=== PATIENT | female | born 1965 | race Caucasian/White ===

== ENCOUNTER 2017-07-01 15:45 | Emergency (ER) | payer MEDICARE ==
[~2017-07-01] VITALS: Ht 162.6 cm; Wt 113.4 kg
[~2017-07-01 15:45] MED LIST: ACEBUTCAFT PO; ALPR.5 PO; AMIT25 PO; Ativan1 MG SL; CARI350 PO; CONEST.625; DULO30 PO; ESTR2 PO; FENT50TP TOP; HORMONE; HYDACE5 PO; HYDACE5325 PO; HYDMOR2 PO; METO25 PO; METO5A PO; MUSCLE RELAXER; NAPR550 PO; Norco 5-325 Ta1 EACH PO; ONDA4ODT MM; PROM25S PR; RANI150 PO; SUMA6I SC; TRAM50 PO; VENL37.5; [UNRECOGNIZED DRUG - REMARK]
[2017-07-01] MEDS ORDERED: DEXTROAMPHETAMI PO (16:12)
[2017-07-01] MEDS ORDERED: ESTR2 PO (16:13)
[2017-07-01] MEDS ORDERED: FURO20 PO (16:13)
[2017-07-01] MEDS ORDERED: FLUO10 PO (16:14)
[2017-07-01] MEDS ORDERED: ZESTORETIC 20-121 EA (16:19)
[2017-07-01 17:22] LABS: BASOPHILS ABSOLUTE AUTO 0.05 K/mm3 (0.00-0.23); BASOPHILS PERCENT AUTO 1 % (0-2); EOSINOPHILS ABSOLUTE AUTO 0.21 K/mm3 (0.00-0.68); EOSINOPHILS PERCENT AUTO 3 % (0-6); Hemoglobin 11.5 g/dL (11.5-16.0); IMMATURE GRAN ABSOLUTE AUTO 0.07 K/mm3 (0.00-0.10); IMMATURE GRAN PERCENT AUTO 1 % (0-1); LYMPHOCYTES PERCENT AUTO 27 % (21-46); MONOCYTES ABSOLUTE AUTO 0.58 K/mm3 (0.16-1.47); MONOCYTES PERCENT AUTO 8 % (4-13); Mean Corpuscular HGB 28.5 pg (26.0-34.0); Mean Corpuscular HGB Conc 32.9 g/dL (31.5-36.5); Mean Corpuscular Volume 87 fL (80-100); NEUTROPHILS ABSOLUTE AUTO 4.16 K/mm3 (1.96-9.15); NEUTROPHILS PERCENT AUTO 60 % (41-73); Platelet Count 259 K/mm3 (150-400); RDW Coefficient Variation 13.8 % (11.7-14.2); RDW Standard Deviation 43.1 fL (35.1-46.3); Red Blood Cell Count 4.04 M/mm3 (3.80-5.20); White Blood Cell Count 6.97 K/mm3 (4.00-11.30)
[2017-07-01 17:43] LABS: Alanine Aminotransfer (ALT/SGP 23 U/L (12-78); Albumin, Blood 3.3 g/dL (3.4-5.0); Albumin/Globulin Ratio 0.8 (0.8-1.8); Alk Phos 111 U/L (50-136); Anion Gap 8 mmol/L (6-16); Aspartate Aminotrans (AST/SGOT 26 U/L (12-37); Bilirubin, Total 0.4 mg/dL (0.1-1.0); Blood Urea Nitrogen 14 mg/dL (8-24); Bun/Creatinine Ratio 16.9 (12.0-20.0); CO2, Blood 25 mmol/L (21-32); Calcium, Blood 8.4 mg/dL (8.5-10.1); Chloride, Blood 106 mmol/L (98-108); Creatinine, Blood 0.83 mg/dL (0.40-1.00); Ethanol (Alcohol), Blood, Med <3 mg/dL; Globulin, Blood 4.1 g/dL (2.2-4.0); Glomerular Filtration Rate >60 (60-); Glucose, Blood 90 mg/dL (70-99); Potassium, Blood 3.8 mmol/L (3.5-5.5); Salicylate <1.7 mg/dL (2.8-20.0); Sodium, Blood 139 mmol/L (136-145); Total Protein, Blood 7.4 g/dL (6.4-8.2)
[2017-07-01 17:48] LABS: Acetaminophen, Random <2.0 ug/mL (10.0-30.0)
[2017-07-01 18:31] LABS: Source, Urine Voided
[2017-07-01 18:44] LABS: Appearance, Urine Clear (Clear); Bilirubin, Urine Neg (Neg); Blood, Urine Neg (Neg); Color, Urine Yellow (P-Yellow); Glucose Qualitative, Urine Neg (Neg); Ketones, Urine Neg (Neg); Leukocyte Esterase, Urine 1+ (Neg); Nitrite, Urine Neg (Neg); Protein, Urine Neg (Neg); Urobilinogen, Urine NORM (Normal)
[2017-07-01 19:03] LABS: U Amphetamine Screen Not Detected; U Barbituate Screen Not Detected; U Benzodiazapine Screen Not Detected; U Buprenorphine Screen Not Detected; U Cannabinoids Screen Not Detected; U Cocaine Screen Not Detected; U Methadone Screen Not Detected; U Methamphetamine Screen Not Detected; U Opiates Screen DETECTED; U Oxycodone Screen Not Detected; U Phencyclidine Screen Not Detected; U Propoxyphene Screen Not Detected
[2017-07-01 19:12] LABS: Bacteria Rare /hpf; Red Blood Cells, Urine 0-2 /hpf (0-2); Squamous Epithelial Cells Rare /hpf (Few); White Blood Cells, Urine 0-2 /hpf (0-5)
== END 2017-07-01 22:01 | disposition home or self-care (01) ==
LOC: ER 15:45
PROVIDERS: Emergency Medicine
DX: T46.4X1A Poisoning by angiotensin-converting-enzyme inhibitors, accidental (unintentional), initial encounter (principal); T50.2X1A Poisoning by carbonic-anhydrase inhibitors, benzothiadiazides and other diuretics, accidental (unintentional), initial encounter; R11.10 Vomiting, unspecified; F32.9 Major depressive disorder, single episode, unspecified; G43.909 Migraine, unspecified, not intractable, without status migrainosus; Z88.8 Allergy status to other drugs, medicaments and biological substances; Z79.899 Other long term (current) drug therapy; Z90.710 Acquired absence of both cervix and uterus
CPT/HCPCS: 80053; 81001; 81025; 84443; 85025; 87086; 93005; 93010; 96360; 99284; G0480; J7030

== ENCOUNTER → 2018-11-22 | Outpatient (CLI) | payer MEDICARE ==
[~2018-11-22] MED LIST changes: +ACYC200 PO; +CLARITIN10 MG; +DEXTROAMPHETAMI PO; +DOC250; +Desyrel150 MG PO; +FISH OIL + D31 EACH; +FLUO10 PO; +FURO20 PO; +HYDMOR4 PO; +MELATONIN10 M2 PO; +MORPHINE SULFATE PO; +POTA10T; +PRAV20 PO; +TRIA15CR3 TOP; +ZESTORETIC 20-1 EAC1 PO
[2018-11-24 13:50] LABS: U Amphetamine Screen DETECTED; U Barbituate Screen Not Detected; U Benzodiazapine Screen Not Detected; U Buprenorphine Screen Not Detected; U Cannabinoids Screen Not Detected; U Cocaine Screen Not Detected; U Methadone Screen Not Detected; U Methamphetamine Screen Not Detected; U Opiates Screen DETECTED; U Oxycodone Screen Not Detected; U Phencyclidine Screen Not Detected; U Propoxyphene Screen Not Detected
== END ==
LOC: LAB SHORT 16:38 → LAB 16:38
PROVIDERS: Psychiatry & Neurology Psychiatry
DX: F90.0 Attention-deficit hyperactivity disorder, predominantly inattentive type (principal)
CPT/HCPCS: G0480

== ENCOUNTER 2019-01-18 08:47 | Day surgery (SDC) | payer MEDICARE ==
[~2019-01-18] VITALS: Ht 162.6 cm; Wt 134.8 kg
[~2019-01-18 08:47] MED LIST changes: -CLARITIN10 MG; -DOC250; -FISH OIL + D31 EACH; -POTA10T
[2019-01-18] MEDS ORDERED: DOC250 (09:59)
[2019-01-18] MEDS ORDERED: CLARITIN10 MG (09:59)
[2019-01-18] MEDS ORDERED: FISH OIL + D31 EACH (09:59)
[2019-01-18] MEDS ORDERED: POTA10T (09:59)
--- NOTE | 2019-01-18 10:30 | NUR ---
01/18/19 1030 Ariadna Chi PATIENT AND SPOUSE NOTIFIED THE PRIOR CASE IS RUNNING A LITTLE LONG AND SHE WILL BE DELAYED A LITTLE BIT. PATIENT IS COMFORTABLE, SPOUSE AT BEDSIDE AND CALL LIGHT ATTACHED TO BLANKET
--- NOTE | 2019-01-18 11:30 | NUR ---
01/18/19 1130 Shelby Caal RIGHT ARM PREPPED BY ORSC.INOCENCIO, LEFT ARM PREPPED BY ORSC.MICHEALG
--- NOTE | 2019-01-18 12:54 | NUR ---
01/18/19 1254 America Cheatham REPORT TO CHARLIE TO TAKE OVER CARE OF PT
== END 2019-01-18 13:30 | disposition home or self-care (01) ==
LOC: ORSCSDS 08:47
PROVIDERS: Orthopaedic Surgery
PROC: 01N50ZZ Release Median Nerve, Open Approach (ICD-10-PCS; principal; 2019-01-18 10:30)
DX: G56.03 Carpal tunnel syndrome, bilateral upper limbs (principal); E66.01 Morbid (severe) obesity due to excess calories; Z68.43 Body mass index [BMI] 50.0-59.9, adult; Z79.899 Other long term (current) drug therapy
CPT/HCPCS: A9270-GY; J0330; J0690; J1100; J2250; J2370; J2405; J2704; J3010; J7120

== ENCOUNTER → 2019-06-07 | Outpatient (CLI) | payer MEDICARE ==
[~2019-06-07] MED LIST changes: +CLARITIN10 MG; +DOC250; +FISH OIL + D31 EACH; +POTA10T
== END ==
LOC: LAB SHORT 08:29 → PLD 08:29
DX: L72.3 Sebaceous cyst (principal)
CPT/HCPCS: 88304

== ENCOUNTER → 2019-10-24 | Outpatient (CLI) | payer MEDICARE | END | disposition home or self-care (01) | LOC: LAB SHORT 18:07 → LAB 18:07 | DX: B35.4 Tinea corporis (principal) | CPT/HCPCS: 87070; 87205 ==

== ENCOUNTER 2021-10-04 23:22 | Inpatient (IN) | payer MEDICARE ==
[~2021-10-04] VITALS: Ht 162.6 cm; Wt 98.4 kg
[2021-10-05 00:09] LABS: BASOPHILS ABSOLUTE AUTO 0.08 K/mm3 (0.00-0.23); BASOPHILS PERCENT AUTO 1 % (0-2); EOSINOPHILS ABSOLUTE AUTO 0.01 K/mm3 (0.00-0.68); EOSINOPHILS PERCENT AUTO 0 % (0-6); Hematocrit 43.8 % (33.0-51.0); Hemoglobin 14.8 g/dL (11.5-16.0); IMMATURE GRAN ABSOLUTE AUTO 0.08 K/mm3 (0.00-0.10); IMMATURE GRAN PERCENT AUTO 1 % (0-1); LYMPHOCYTES ABSOLUTE AUTO 2.35 K/mm3 (0.84-5.20); LYMPHOCYTES PERCENT AUTO 17 % (21-46); MONOCYTES ABSOLUTE AUTO 0.98 K/mm3 (0.16-1.47); MONOCYTES PERCENT AUTO 7 % (4-13); Mean Corpuscular HGB Conc 33.8 g/dL (31.5-36.5); Mean Corpuscular Volume 86 fL (80-100); Mean Platelet Volume 9.6 fL (9.1-12.4); NEUTROPHILS ABSOLUTE AUTO 10.34 K/mm3 (1.96-9.15); NEUTROPHILS PERCENT AUTO 75 % (41-73); Platelet Count 302 K/mm3 (150-400); RDW Coefficient Variation 12.5 % (11.7-14.2); RDW Standard Deviation 38.8 fL (35.1-46.3); White Blood Cell Count 13.84 K/mm3 (4.00-11.30)
[2021-10-05] MEDS ORDERED: ESTRADIOL1 M1 (00:14)
[2021-10-05] MEDS ORDERED: ALPRAZOLAM PO (00:14)
[2021-10-05] MEDS ORDERED: ONDA4 PO (00:15)
[2021-10-05] MEDS ORDERED: ZOLPIDEM TARTRA10 MG PO (00:15)
[2021-10-05 00:26] LABS: Albumin, Blood 4.6 g/dL (3.4-5.0); Albumin/Globulin Ratio 1.2 (0.8-1.8); Bilirubin, Total 1.7 mg/dL (0.1-1.0); Bun/Creatinine Ratio 10.1 (12.0-20.0); Calcium, Blood 10.4 mg/dL (8.5-10.1); Creatinine, Blood 1.09 mg/dL (0.40-1.00); Globulin, Blood 3.7 g/dL (2.2-4.0); Potassium, Blood 2.7 mmol/L (3.5-5.5); Total Protein, Blood 8.3 g/dL (6.4-8.2)
[2021-10-05 03:52] LABS: Anti-Xa UFH, PHA Monitoring <0.10 IU/mL; International Normalized Ratio 1.11; Prothrombin Time Results 11.6 Sec (9.7-11.5)
--- NOTE | 2021-10-05 06:37 | NUR ---
CARE ASSUMPTION: RECEIVED REPORT FROM SELAM ED RN. PATIENT ARRIVED BY GURNEY AND AMBULATED TO TOILET. PATIENT REPORTED 6/10 CHEST PAIN, NO SOB. PATIENT DRY HEAVING. HEPARIN AND KCL Y-SITED TO [facility] IV SITE - VERIFIED WITH PHARMACY THIS WAS ACCEPTABLE. ADMISSION HX AND ASSESSMENT COMPLETE. MEDS RECONCILED. BED LOW WITH CALL LIGHT IN REACH. WILL REPORT TO ONCOMING RN.
[2021-10-05 09:06] LABS: BASOPHILS ABSOLUTE AUTO 0.05 K/mm3 (0.00-0.23); BASOPHILS PERCENT AUTO 0 % (0-2); EOSINOPHILS PERCENT AUTO 0 % (0-6); Hematocrit 42.7 % (33.0-51.0); Hemoglobin 13.8 g/dL (11.5-16.0); IMMATURE GRAN PERCENT AUTO 1 % (0-1); LYMPHOCYTES ABSOLUTE AUTO 1.67 K/mm3 (0.84-5.20); LYMPHOCYTES PERCENT AUTO 12 % (21-46); MONOCYTES ABSOLUTE AUTO 0.66 K/mm3 (0.16-1.47); MONOCYTES PERCENT AUTO 5 % (4-13); Mean Corpuscular HGB 28.6 pg (26.0-34.0); Mean Corpuscular HGB Conc 32.3 g/dL (31.5-36.5); Mean Corpuscular Volume 88 fL (80-100); Mean Platelet Volume 9.9 fL (9.1-12.4); NEUTROPHILS ABSOLUTE AUTO 11.17 K/mm3 (1.96-9.15); NEUTROPHILS PERCENT AUTO 82 % (41-73); Platelet Count 231 K/mm3 (150-400); RDW Standard Deviation 41.9 fL (35.1-46.3); Red Blood Cell Count 4.83 M/mm3 (3.80-5.20); White Blood Cell Count 13.65 K/mm3 (4.00-11.30)
[2021-10-05 09:14] LABS: Albumin, Blood 4.1 g/dL (3.4-5.0); Anion Gap 11 mmol/L (6-16); Blood Urea Nitrogen 14 mg/dL (8-24); Bun/Creatinine Ratio 13.3 (12.0-20.0); CO2, Blood 23 mmol/L (21-32); Calcium, Blood 9.3 mg/dL (8.5-10.1); Chloride, Blood 107 mmol/L (98-108); Creatinine, Blood 1.05 mg/dL (0.40-1.00); Glomerular Filtration Rate 62 (60-); Glucose, Blood 104 mg/dL (70-99); Potassium, Blood 3.4 mmol/L (3.5-5.5); Sodium, Blood 141 mmol/L (136-145)
--- NOTE | 2021-10-05 10:23 | NUR ---
AM NOTE: PATIENT ALERT AND ORIENTED X4. DENIES NUMBNESS/TINGLING. PERRLA. ABLE TO STAND AND MOVE SELF AROUND IN BED. USING BSC. ON ROOM AIR SATING ABOVE 95%. LUNGS SOUNDING CLEAR AND DIM. ON TELE SHOWING SINUS RHYTHM WITH OCCASIONAL PAC, ELEVATED BP. COMPLAINS OF 6/[address] THIS AM. [address] WALLACE AWARE AND IN THIS AM TO SEE PATIENT. EKG COMPLETED AND IN CHART. TROP REDRAWN. PLAN FOR ECHO, DDIMER LAB, AND CT SCAN OF ABDOMEN/PELVIS. PATIENT REFUSING NITRO SHE ALREADY HAS MIGRAINE AND PREVIOUS NITRO IN ER MADE MIGRAINE WORSE. FENTANYL GIVEN THIS AM WITH NO RELIEF. DR. ROMAN CALLED, NEW ORDER FOR MORPHINE X1, GIVEN WITH LITTLE RELIEF WELL. PRN XANAX GIVEN PATIENT IS ANXIOUS. CHRONIC PAIN WITH PAIN PUMP TO RLQ. DENIES ABDOMINAL PAIN, COMPLAINS OF NAUSEA THIS AM, MEDICATED WITH ZOFRAN. NPO AT THIS TIME. PATIENT LAYING DOWN AT THIS TIME AND SEEMS TO BE MORE COMFORTABLE COMPARED TO THE START OF SHIFT. HEPARIN INFUSING AT 15 UNITS/KG/HOUR. DENIES NEEDS AT THIS TIME WILL CONTINUE TO MONITOR.
--- NOTE | 2021-10-05 18:57 | NUR ---
SHIFT SUMMARY: NO ACUTE CHANGES. PATIENT CONTINUES TO COMPLAIN OF PAIN AND NOT ABLE TO GET COMFORTABLE. HEPARIN GTT CONTINUES TO INFUSE. CALL PLACED TO DR. ROMAN TO DISCUSS PAIN. NEW ORDERS FOR 1MG IV DILAUDID X1. SEEMED TO HELP PATIENT, SLEEPING NOW AT THIS TIME. BP ELEVATED ON 1600 CHECK, HYDRALIZINE GIVEN WITH GOOD RELIEF. NO OTHER ACUTE CHANGES. WILL CONTINUE TO MONITOR AND REPORT OFF TO ONCOMING RN.
[2021-10-06 04:28] LABS: BASOPHILS ABSOLUTE AUTO 0.06 K/mm3 (0.00-0.23); BASOPHILS PERCENT AUTO 0 % (0-2); EOSINOPHILS ABSOLUTE AUTO 0.01 K/mm3 (0.00-0.68); EOSINOPHILS PERCENT AUTO 0 % (0-6); Hematocrit 37.4 % (33.0-51.0); Hemoglobin 12.5 g/dL (11.5-16.0); IMMATURE GRAN ABSOLUTE AUTO 0.11 K/mm3 (0.00-0.10); IMMATURE GRAN PERCENT AUTO 1 % (0-1); LYMPHOCYTES ABSOLUTE AUTO 2.44 K/mm3 (0.84-5.20); LYMPHOCYTES PERCENT AUTO 16 % (21-46); MONOCYTES ABSOLUTE AUTO 0.82 K/mm3 (0.16-1.47); MONOCYTES PERCENT AUTO 6 % (4-13); Mean Corpuscular HGB Conc 33.4 g/dL (31.5-36.5); Mean Corpuscular Volume 87 fL (80-100); Mean Platelet Volume 9.9 fL (9.1-12.4); NEUTROPHILS ABSOLUTE AUTO 11.52 K/mm3 (1.96-9.15); NEUTROPHILS PERCENT AUTO 77 % (41-73); Platelet Count 219 K/mm3 (150-400); RDW Coefficient Variation 13.3 % (11.7-14.2); RDW Standard Deviation 41.7 fL (35.1-46.3); Red Blood Cell Count 4.31 M/mm3 (3.80-5.20); White Blood Cell Count 14.96 K/mm3 (4.00-11.30)
[2021-10-06 04:56] LABS: Albumin, Blood 3.8 g/dL (3.4-5.0); Anion Gap 8 mmol/L (6-16); Blood Urea Nitrogen 13 mg/dL (8-24); Bun/Creatinine Ratio 14.3 (12.0-20.0); CO2, Blood 24 mmol/L (21-32); Calcium, Blood 8.9 mg/dL (8.5-10.1); Chloride, Blood 107 mmol/L (98-108); Creatinine, Blood 0.91 mg/dL (0.40-1.00); Glomerular Filtration Rate 74 (60-); Glucose, Blood 104 mg/dL (70-99); Phosphorus, Blood 2.6 mg/dL (2.5-4.9); Sodium, Blood 139 mmol/L (136-145)
--- NOTE | 2021-10-06 06:54 | NUR ---
SHIFT SUMMARY PT ALERT AND ORIENTED X 4. IND TO COMMODE. HEPARIN GTT, SEE EMAR. PT REPORTS SEVERE CP T/O SHIFT. MEDICATED PER EMAR. PHYSICIAN NOTIFIED AT BEGINNING OF SHIFT, ORDERS FOR DOSE INCREASE ON FENTANYL TO 75 MCG-100MC Q 4. PT CONT TO REPORT SEVERE PAIN. RESIDENT INFORMED, ORDERS FOR 1 MG DILAUDID ONE TIME. PT CONT TO REPORT PAIN, MEDICATED PER EMAR AND OFFERED ICE/HEAT. VSS. HR STABLE. BP STABLE. OXYGEN SATURATION MAINTAINED ABOVE 95% ON RA. PT NPO SINCE MIDNIGHT FOR STRESS TEST THIS AM. CALL LIGHT WITHIN REACH. WILL CONT TO MONITOR UNTIL REPORT GIVEN TO DAYSHIFT RN.
[2021-10-06 12:28] LABS: Hematocrit 36.5 % (33.0-51.0); Hemoglobin 12.3 g/dL (11.5-16.0)
--- NOTE | 2021-10-06 17:17 | NUR ---
SHIFT SUMMARY PT HAS BEEN INDEPENDENT IN ROOM. PT HAS C/O 10/10 PAIN TO THE "BASE OF SKULL DOWN NECK" AND THE "TOP OF HEART" THAT IS WORSE ON ISPIRATION. PAIN HAS BEEN UNRELIEVED WITH MEDICATION OR OTHER INTERVENTIONS. PT HAS ALSO C/O EXTREME ANXIETY THAT WAS UNRELIEVED WITH MEDICATION. PT TOOK A SHOWER AND AMBULATED IN HALLWAYS INDEPENDENTLY. SBP WAS A CONSISTENT 170. HEART RATE RANGED 50-60, THERE WAS A PERIOD OF VENTRICULAR BIGEMINY THAT SPONTANEOUSLY CONVERTED BACK TO SINUS RHYTHM. NO ACUTE CHANGES IN CONDITION.
[2021-10-06 18:16] LABS: Hematocrit 36.4 % (33.0-51.0); Hemoglobin 12.4 g/dL (11.5-16.0)
--- NOTE | 2021-10-06 21:32 | NUR ---
PT VERY ANXIOUS IN ROOM. ROCKING BACK AND FORTH. ASKED THIS NURSE TO GET MORE PAIN MEDS OR ANXIETY MEDICATION SO THAT SHE CAN SLEEP. THIS RN ASKED WHAT MEDICATION WORKED BEST FOR HER AND MORE INFO ABOUT PAIN PUMP. SHE STATED PAIN PUMP MIGHT NO LONGER BE WORKING AND THAT SHE TAKES DILAUDID IN BETWEEN PUMP BOLUSES DUE TO SEVERE PAIN. SHE STATES THAT THE FENTYNAL GIVEN TO HER IS CAUSING HER HEADACHES. SHE PROCEEDED TO ASK FOR ADDITIONAL DOSES OF XANAX BECAUSE SHE TAKES XANAX TWICE A DAY VS ONCE ORDERED. THIS NURSE CALLED DR MEJIA AND NOTIFIED HER OF PT'S REQUESTS. DOCTOR TO PUT IN FURTHER ORDERS. WHEN THIS NURSE WENT IN TO MEDICATE PER ORDER ENTERED BY DR MEJIA PT OVERHEARD PT ACCROSS THE DON NOT WANTING "SEDATIVES" AND ASKED IF SHE COULD HAVE THE "SEDATIVES," THEY REFUSED.
--- NOTE | 2021-10-06 23:00 | NUR ---
PT CALLED THIS NURSE REGARDING A BUMP THAT SHE HAS ON HER RIGHT BUTTOCK FROM A FEW DAYS AGO. SHE REPORTS THAT IT IS VERY PAINFUL AND THIS NURSE WAS ABLE TO OBTAIN A PICTURE FOR CHART. PT ALSO REQUESTED THIS NURSE TO CONTACT AND ASK FOR ADDITIONAL ANXIETY MEDICATION BECAUSE ORDERED MEDICATION GIVEN PREVIOUSLY PER EMAR DID NOT WORK. PT APPEARS TO BE CALMER THAN BEFORE SHE WAS MEDICATED BUT REPORTS NO IMPROVEMENT. SHE IS REQUESTING HER "HOME ORDER" OF XANAX 1MG WITH NO LIMIT WHICH SHE TAKES PRN ACCORDING TO "STRESSORS." HR IS NSR SUSTAINING IN THE 60'S. SHE ALSO REQUESTED INFO ON CHANGES TO PAIN MEDICATION. PT INFORMED THIS NURSE THAT THE MORPHINE PUMP GIVES HER 7MG PER DAY BUT SHE IS ABLE TO HAVE 1.5MG ADDITIONAL BOLUS TID PRN, PER PAIN MANAGEMENT DOCTOR'S ORDER IN [place], BUT INFORMED THIS NURSE THAT THE PUMP POSSIBLY BECAME DISLODGED AND SHE MIGHT NOT BE GETTING AN ADEQUATE DOSE. SHE ALSO STS THAT SHE HAD A RX FOR DILAUDID PO FOR BREAKTHROUGH HEADACHES BUT RETRACTED THAT IT WAS AN ACTIVE ORDER. VERBALLY TALKED TO DR MEJIA AND DID NOT OBTAIN FURTHER ORDERS.
--- NOTE | 2021-10-07 00:44 | NUR ---
WHEN GIVING PT PAIN MEDICATION FOR SHOULDER AND HEADACHE 01/12 PT ASKED THIS NURSE IF THERE IS ANY WAY THE DOSE "COULD BE DOUBLED." PT ADVISED THAT WE DO NOT DO THAT AND EDUCATED ON PAIN MANAGEMENT AND POLICIES.
[2021-10-07 00:55] LABS: Hematocrit 37.7 % (33.0-51.0); Hemoglobin 12.7 g/dL (11.5-16.0)
[2021-10-07 01:15] LABS: CHOL/HDL RATIO 3.2; Cholesterol 151 mg/dL (50-200); HDL Cholesterol 47 mg/dL (>39); LDL/HDL RATIO 1.8; Low Density Lipoprotein Chol 83 mg/dL (0-110); Triglycerides 107 mg/dL (30-160); Very Low Density Lipoprot Chol 21 mg/dL (6-32)
[2021-10-07 06:17] LABS: BASOPHILS ABSOLUTE AUTO 0.08 K/mm3 (0.00-0.23); BASOPHILS PERCENT AUTO 1 % (0-2); EOSINOPHILS ABSOLUTE AUTO 0.01 K/mm3 (0.00-0.68); EOSINOPHILS PERCENT AUTO 0 % (0-6); Hematocrit 36.7 % (33.0-51.0); Hemoglobin 12.4 g/dL (11.5-16.0); IMMATURE GRAN ABSOLUTE AUTO 0.15 K/mm3 (0.00-0.10); IMMATURE GRAN PERCENT AUTO 1 % (0-1); LYMPHOCYTES ABSOLUTE AUTO 2.51 K/mm3 (0.84-5.20); LYMPHOCYTES PERCENT AUTO 15 % (21-46); MONOCYTES PERCENT AUTO 5 % (4-13); Mean Corpuscular HGB 28.7 pg (26.0-34.0); Mean Corpuscular HGB Conc 33.8 g/dL (31.5-36.5); Mean Corpuscular Volume 85 fL (80-100); Mean Platelet Volume 9.6 fL (9.1-12.4); NEUTROPHILS ABSOLUTE AUTO 13.27 K/mm3 (1.96-9.15); NEUTROPHILS PERCENT AUTO 78 % (41-73); Platelet Count 227 K/mm3 (150-400); RDW Coefficient Variation 13.1 % (11.7-14.2); RDW Standard Deviation 40.1 fL (35.1-46.3); Red Blood Cell Count 4.32 M/mm3 (3.80-5.20); White Blood Cell Count 16.92 K/mm3 (4.00-11.30)
[2021-10-07 06:32] LABS: Albumin, Blood 4.1 g/dL (3.4-5.0); Anion Gap 10 mmol/L (6-16); Blood Urea Nitrogen 10 mg/dL (8-24); Bun/Creatinine Ratio 11.9 (12.0-20.0); CO2, Blood 24 mmol/L (21-32); Calcium, Blood 9.2 mg/dL (8.5-10.1); Chloride, Blood 105 mmol/L (98-108); Creatinine, Blood 0.84 mg/dL (0.40-1.00); Glomerular Filtration Rate 82 (60-); Glucose, Blood 116 mg/dL (70-99); Phosphorus, Blood 2.5 mg/dL (2.5-4.9); Sodium, Blood 139 mmol/L (136-145)
--- NOTE | 2021-10-07 07:32 | NUR ---
SHIFT SUMMARY PT A/O. BP WAS ELEVATED DUE TO PT MOVING AND ROCKING WHEN BP WAS TAKEN, WHEN ADVISED TO HOLD STILL SHE DID NOT. SHE REMAINED ON RA WITH SATS ABOVE 92%. PT HAS CALLED SEVERAL TIMES T/O THE NIGHT FOR INCREASE AND DECREASE OF ROOM TEMP, TAKING TELE MONITOR ON AND OFF, PAIN MED REQUEST, ANXIETY MED REQUEST. PT HAS AMBULATED DOWN THE DON THREE TIMES BUT CALLS FOR HELP TO AMBULATE TO BATHROOM. WITH PAIN MEDICATION PT ASKED THIS NURSE IF SHE COULD GET DOUBLE THE DOSE. IN ANOTHER OCCASSION SHE ASKED THIS NURSE THAT IF SHE COULD GET HER PAIN MEDICATION EARLIER BECAUSE ANOTHER NURSE HAS DONE THAT PREVIOUSLY FOR HER. PT ALSO WANTED MORE ANXIETY MEDS THAN ORDERED. AFTER OBTAINING AN ORDER OF HYDROXAZINE THIS NURSE WENT INTO ROOM BECAUSE IT APPEARED THAT SHE WAS NAUSEOUS AND THROWING UP BUT WAS ADVICED THAT THE ANXIETY MEDICATION SHOULD BE HELD SINCE THER IS RISK OF VOMITING IT UP SHE STATED THAT "SHE WAS OKAY AND COULD HOLD IT DOWN." THE NAUSEA STOPPED. PT LATER REPORTED HYDOXAZINE DID NOT WORK AND IF THIS NURSE COULD ATTEMPT ANOTHER MEDICATION. THIS NURSE COMMUNICATED WITH DR MEJIA T/O THE NIGHT. THIS MORNING PT REFUSED LAB DRAWS UNTIL SHE "GETS HER PAIN MED." SHE REPORTS FEELING HEAVY CHEST PAIN IF ELEPHANT IS THUMPING ON CHEST 10/10, HEADACHES 10/10 AND SHOULDER PAIN 10/10. SHE HAS REPORTED NOT ABLE TO SLEEP. SHE REPORTS THAT DILAUDID WORKS BETTER THAN FENTYNAL. FENTANYL GIVES HER HEADACHES AND MAKES IT WORSE, BUT REQUESTED FENTANYL IF THAT IS ALL SHE HAD. SHE DID USE SEVERAL INAPPROPRIATE WORDS WHEN WANTING CHANGES TO MEDS THAT THIS NURSE WAS UNABLE TO OBTAIN.
--- NOTE | 2021-10-07 07:55 | NUR ---
SHIFT SUMMARY PT A/O. THERE HAVE BEEN NO ACUTE CHANGES SINCE ADMIT. PT ARRIVED WITH BELONGINGS AND WAS ABLE TO PIVOT FROM GURNEY TO BED. SHE REPORTED SLIGHT CHEST PAIN. NO SOB. UPON ASSESSMENT LLE WAS NOTED TO BE SWOLLEN RED AND WARM, WHEN ASKED HOW LONG STATED 1 MONTH. 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 SHE WAS ABLE TO PIVOT TO [facility] THIS MORNING BUT REPORTED FEELING DIZZY WHEN STANDING HR NOTED IN SB 50'S BUT CAME UP TO 70'S WITH REST. PT ADVISED TO USE CALL LIGHT SINCE SHE HAS HISTORY OF [place] BEING IN FEB 2021 RESULTING WITH HOPITALIZATION AND BROKEN BONES. CALL LIGHT IS WITHIN REACH.
[2021-10-07] MEDS ORDERED: POTA10T PO (14:01)
--- NOTE | 2021-10-07 16:21 | NUR ---
DISCHARGE HOME PT A&O X4. VSS. PT REPORTING CONTINUED CP. PRN NITRO OFFERED PER EMAR W/ PT REFUSAL, REQUESTING IV FENTANYL INSTEAD. MEDICATING PER EMAR/PT REQUEST W/ PT REPORT OF LITTLE IMPROVEMENT. PT ABLE TO SLEEP AFTER PRN IV FENTANYL ADMINISTRATION. STRESS TEST COMPLETE TODAY. MD JIMENEZ TO PT BEDSIDE W/ ORDERS TO DISCHARGE HOME & FOLLOW UP W/ PCP. PT TAKEN OUT BY PCT IN WHEELCHAIR W/ BELONGINGS @ APPROX 1600 TODAY.
== END 2021-10-07 16:00 | disposition home or self-care (01) | DRG 313 ==
LOC: ER 23:22 → PCU 23:23
PROVIDERS: Emergency Medicine; Family Medicine; ADMIT Internal Medicine
DX: R07.89 Other chest pain (principal); I5A Non-ischemic myocardial injury (non-traumatic); I16.0 Hypertensive urgency; I12.9 Hypertensive chronic kidney disease with stage 1 through stage 4 chronic kidney disease, or unspecified chronic kidney disease; N18.30 Chronic kidney disease, stage 3 unspecified; F32.A Depression, unspecified; G43.909 Migraine, unspecified, not intractable, without status migrainosus; G89.4 Chronic pain syndrome; F41.9 Anxiety disorder, unspecified; G47.00 Insomnia, unspecified; E87.6 Hypokalemia; D72.828 Other elevated white blood cell count; Z76.5 Malingerer [conscious simulation]; Z90.710 Acquired absence of both cervix and uterus; Z90.722 Acquired absence of ovaries, bilateral; Z98.84 Bariatric surgery status
CPT/HCPCS: 36415; 71045; 71275; 74174; 78452; 80053; 80061; 80069; 83690; 84484; 85014; 85018; 85025; 85379; 85520; 85610; 85730; 93005; 93010; 93017; 93306; 96361; 96365; 96372; 96375; 96376; 99285-25; A9270; A9500; C1751; C9113; G0378; J0360; J1170; J1644; J2060; J2270; J2405; J2785; J3010; J3480; J7030; J7050; Q9967

== ENCOUNTER 2021-10-12 12:13 | Inpatient (IN) | payer MEDICARE ==
[~2021-10-12] VITALS: Ht 162.6 cm; Wt 101.5 kg
[~2021-10-12 12:13] MED LIST changes: +ALPRAZOLAM PO; +ESTRADIOL1 M1 PO; +Lisinopril-Hct1 EAC4 PO; +ONDA4 PO; +POTA10T PO; -ZESTORETIC 20-1 EAC1 PO; +ZOLPIDEM TARTRA10 MG PO
[2021-10-12] MEDS ORDERED: ATOR10 PO (12:28)
[2021-10-12] MEDS ORDERED: ESCI10 PO (12:29)
[2021-10-12] MEDS ORDERED: ZOLP5 PO (12:29)
[2021-10-12] MEDS ORDERED: HYDPAM50 PO (12:30)
[2021-10-12] MEDS ORDERED: METO10 PO (12:31)
[2021-10-12 13:01] LABS: BASOPHILS PERCENT AUTO 1 % (0-2); EOSINOPHILS ABSOLUTE AUTO 0.16 K/mm3 (0.00-0.68); EOSINOPHILS PERCENT AUTO 1 % (0-6); Hematocrit 40.9 % (33.0-51.0); Hemoglobin 13.6 g/dL (11.5-16.0); IMMATURE GRAN ABSOLUTE AUTO 0.05 K/mm3 (0.00-0.10); IMMATURE GRAN PERCENT AUTO 0 % (0-1); LYMPHOCYTES ABSOLUTE AUTO 2.67 K/mm3 (0.84-5.20); LYMPHOCYTES PERCENT AUTO 20 % (21-46); MONOCYTES ABSOLUTE AUTO 1.01 K/mm3 (0.16-1.47); MONOCYTES PERCENT AUTO 8 % (4-13); Mean Corpuscular HGB 28.9 pg (26.0-34.0); Mean Corpuscular HGB Conc 33.3 g/dL (31.5-36.5); Mean Corpuscular Volume 87 fL (80-100); Mean Platelet Volume 9.7 fL (9.1-12.4); NEUTROPHILS ABSOLUTE AUTO 9.35 K/mm3 (1.96-9.15); NEUTROPHILS PERCENT AUTO 70 % (41-73); Platelet Count 277 K/mm3 (150-400); RDW Coefficient Variation 13.4 % (11.7-14.2); RDW Standard Deviation 42.7 fL (35.1-46.3); White Blood Cell Count 13.34 K/mm3 (4.00-11.30)
[2021-10-12 13:18] LABS: Albumin, Blood 4.1 g/dL (3.4-5.0); Albumin/Globulin Ratio 1.3 (0.8-1.8); Bilirubin, Total 1.2 mg/dL (0.1-1.0); Bun/Creatinine Ratio 7.3 (12.0-20.0); Calcium, Blood 9.2 mg/dL (8.5-10.1); Creatinine, Blood 4.94 mg/dL (0.40-1.00); Globulin, Blood 3.1 g/dL (2.2-4.0); Potassium, Blood 3.1 mmol/L (3.5-5.5); Total Protein, Blood 7.2 g/dL (6.4-8.2)
[2021-10-12 14:41] LABS: Creatine Kinase MB 52.6 ng/mL (0.0-3.6); Creatine Kinase MB Index 4.2 (0.0-4.0)
[2021-10-12 15:37] LABS: Source, Urine Straight Cath
[2021-10-12 15:42] LABS: Appearance, Urine Hazy (Clear); Bilirubin, Urine Neg (Neg); Blood, Urine 5+ (Neg); Color, Urine Yellow (P-Yellow); Glucose Qualitative, Urine Neg (Neg); Ketones, Urine Neg (Neg); Leukocyte Esterase, Urine Neg (Neg); Nitrite, Urine Neg (Neg); Protein, Urine 3+ (Neg); Urobilinogen, Urine NORM (Normal); pH, Urine 6.5 (5.0-8.0)
[2021-10-12 16:11] LABS: Bacteria Mod /hpf; Squamous Epithelial Cells Few /hpf (Few)
[2021-10-12 16:12] LABS: Transitional Epithelial Cells Few /hpf (0-Rare)
[2021-10-12 16:13] LABS: Amorphous Light (0-Heavy)
[2021-10-12 16:24] LABS: U Amphetamine Screen DETECTED; U Barbituate Screen Not Detected; U Benzodiazapine Screen DETECTED; U Methamphetamine Screen Not Detected
[2021-10-12 16:25] LABS: U Buprenorphine Screen Not Detected; U Cannabinoids Screen Not Detected; U Cocaine Screen Not Detected; U Methadone Screen Not Detected; U Opiates Screen DETECTED; U Oxycodone Screen Not Detected; U Phencyclidine Screen Not Detected; U Propoxyphene Screen Not Detected
--- NOTE | 2021-10-12 19:29 | NUR ---
PT HAS BEEN STABLE SINCE ADMISSION. CONT RIGIDITY AND SPASMS IN ALL EXTREMITIES. SWALLOWS WELL. PURE WICK IN PLACE WITH ATTENDS. AWAITING PT EVAL. PENDING LABS. AT BEDSIDE. REPORT GIVEN TO KAITLYNN GARCIA.
[2021-10-12 19:47] LABS: Bun/Creatinine Ratio 8.5 (12.0-20.0); Calcium, Blood 8.8 mg/dL (8.5-10.1); Creatinine, Blood 3.66 mg/dL (0.40-1.00); Magnesium, Blood 2.4 mg/dL (1.6-2.4); Potassium, Blood 3.2 mmol/L (3.5-5.5)
--- NOTE | 2021-10-12 22:00 | NUR ---
ASSUMED CARE AT 1900 PT LAYING IN BED WITH AT BEDSIDE AT SHIFT CHANGE. PT LEFT SHORTLY AFTER REPORT. PT IS ALERT/ORIENTED X4 AND ABLE TO MAKER HER NEEDS KNOWN. PT IS HAVING SPONTANIOUS SPASMS AND CRAMPING PAINS THAT SHE RATES 9/10. RUE AND RLE ARE STIFF AND PT HAS VERY LITTLE MOVEMENT OF THOSE LIMBS; PT IS ABLE TO FREELY MOVE LUE AND LLE; PRN FENATNYL AND ATIVAN GIVEN AND HELPFUL. SPO2 >98% ON RA. HR 70'S. BP STABLE. PURE WICK IN PLACE WITH ATTENDS FOR OCCATIONAL INCONTINENCE. NS INFUSING AT 150ML/HR. SEE SHIFT ASSESSMENT FOR FULL ASSESSMENT. CALLED THE RESIDENT REGARDING POTASSIUM LAB OF 3.1. NEW ORDERS PROVIDED FOR KCL.
--- NOTE | 2021-10-13 03:19 | NUR ---
0000 UPDATE PT SPONTANIOUS SPASMS AND CRAMPING ARE IMPROVED; PT RATES PAIN A 5/10 WITH ONLY OCCATIONAL SPASMS. CONT TO HAVE VERY LIMITED MOVEMENT OF THE RUE AND THE RLE. WILL CONT TO MONITOR.
[2021-10-13 04:38] LABS: Hematocrit 36.3 % (33.0-51.0); Hemoglobin 11.8 g/dL (11.5-16.0); Mean Corpuscular HGB 28.8 pg (26.0-34.0); Mean Corpuscular HGB Conc 32.5 g/dL (31.5-36.5); Mean Corpuscular Volume 89 fL (80-100); Mean Platelet Volume 9.6 fL (9.1-12.4); Platelet Count 220 K/mm3 (150-400); RDW Coefficient Variation 13.4 % (11.7-14.2); RDW Standard Deviation 43.8 fL (35.1-46.3); White Blood Cell Count 9.33 K/mm3 (4.00-11.30)
--- NOTE | 2021-10-13 05:31 | NUR ---
END OF SHIFT SUMMARY NO ACUTE EVENTS OVER NIGHT. PT WAS ABLE TO SLEEP AFTER GIVING ATIVAN AND FENTANYL. PT IS A/O X4 AND ABLE TO MAKE HER NEEDS KNOWN. MORE MOVEMENT NOTED TO LUE AND LLE; RUE AND RLE CONT TO HAVE VERY LITTLE MOVEMENT BUT SPONTANIOUS SPASMS HAVE DECREASED. VITALS STABLE ALL NIGHT. PT ON RA. PURE WICK IN PLACE. WILL REPORT TO AM RN WHEN AVAILABLE.
[2021-10-13 05:49] LABS: Albumin, Blood 3.1 g/dL (3.4-5.0); Anion Gap 7 mmol/L (6-16); Blood Urea Nitrogen 25 mg/dL (8-24); Bun/Creatinine Ratio 12.5 (12.0-20.0); CO2, Blood 24 mmol/L (21-32); CPK Creatine Kinase 1838 U/L (26-193); Calcium, Blood 8.4 mg/dL (8.5-10.1); Chloride, Blood 108 mmol/L (98-108); Glomerular Filtration Rate 29 (60-); Glucose, Blood 124 mg/dL (70-99); Phosphorus, Blood 2.5 mg/dL (2.5-4.9); Potassium, Blood 3.7 mmol/L (3.5-5.5); Sodium, Blood 139 mmol/L (136-145)
--- NOTE | 2021-10-13 10:34 | NUR ---
AM NOTE: PATIENT ALERT AND ORIENTED X4. PERRLA. RIGHT SIDE WEAKNESS/CRAMPING/SPASMS COMPARED TO LEFT SIDE. LEFT SIDE WNL. RIGHT UPPER EXTREMITY IMPROVING. PATIENT ABLE TO RAISE LEFT ARM EQUALLY WITH LEFT, JUST AT SLOWER RATE. BILATERAL BRIGADIER STRENGTH EQUAL. RIGHT LOWER EXTREMITY STRAIGHT, WITH VERY MINIMAL MOVEMENT. PATIENT STATES RIGHT LEG HAS INTERMIT TINGLES WITH SPASMS THAT ARE PAINFUL. PATIENT UNABLE TO WIGGLE RIGHT TOES. ALL PULSES STRONG AND PALPABLE. DENIES HEADACHE/VISION CHANGES. SPEECH CLEAR. NO FACIAL DROOP NOTED. SWALLOWING WNL. RESP WNL. LUNGS SOUNDING CLEAR. ON ROOM AIR. DENIES COUGH. TELE SHOWING SINUS RHYTHM THIS AM WITH HR 70'S. BP STABLE. DENIES CHEST PAIN/PRESSURE. DENIES ABDOMIANL PAIN/NAUSEA. PAIN PUMP TO RLQ. PURE WICK IN PLACE WITH ATTENDS. CHANGED THIS AM. Q2 TURNING AND NEEDED. PATIENT UNABLE TO GET OUT OF BED DUE TO LACK OF MOBILITY IN RIGHT LEG. ATE BREAKFAST THIS AM, AND SLEEPING ON AND OFF. NORMAL SALINE INFUSING AT 150 ML/HR. PHYSICAL THERAPY ORDERS IN PLACE. CALL LIGHT IN REACH. DENIES NEEDS AT THIS TIME. WILL CONTINUE TO MONITOR.
--- NOTE | 2021-10-13 17:31 | NUR ---
SHIFT SUMMARY: PATIENT REMAINS ALERT AND ORIENTED. WORKING WITH PT/OT. SITTING AT EDGE OF BED FOR EXTENDED TIME BEFORE DINNER. RIGHT UPPER EXTREMITY ROM IMPROVED, WITH RESIDUAL WEAKNESS. RIGHT LOWER EXTREMITY BECOMING LESS RIGID, AND PATIENT MAKING SMALL MOVEMENTS. STILL NOT ABLE TO WIGGLE TOES. STILL STATES SHE HAS TINGLING AND REDUCED FEELING IN RIGHT LOWER EXTREMITY. REMAINS ON ROOM AIR. COMPLAINS OF RIGHT SHOULDER TIGHTNESS. DENIES PAIN. EATING WELL. NS INFUSING AT 150 ML/HR. BP/HR STABLE. MEDICAL STATUS, NO TELE. CALL LIGHT IN REACH. ABLE TO MOVE SELF IN BED. DENIES NEEDS AT THIS TIME. WILL CONTINUE TO MONITOR AND REPORT OFF TO ONCOMING RN.
[2021-10-14 04:49] LABS: Albumin, Blood 2.8 g/dL (3.4-5.0); Anion Gap 6 mmol/L (6-16); Blood Urea Nitrogen 15 mg/dL (8-24); Bun/Creatinine Ratio 16.6 (12.0-20.0); CO2, Blood 26 mmol/L (21-32); Calcium, Blood 8.3 mg/dL (8.5-10.1); Chloride, Blood 109 mmol/L (98-108); Glomerular Filtration Rate 75 (60-); Glucose, Blood 84 mg/dL (70-99); Phosphorus, Blood 1.9 mg/dL (2.5-4.9); Potassium, Blood 3.3 mmol/L (3.5-5.5); Sodium, Blood 141 mmol/L (136-145)
--- NOTE | 2021-10-14 06:04 | NUR ---
SHIFT SUMMARY NO ACUTE CHANGES THIS SHIFT. AT BEDSIDE AT START OF SHIFT. PT A&OX4. PT WORKED THIS EVENING TO R SIDE EXTREMETIES, IMPROVING STRENGTH AND ROM. SEE ASSESSMENT. SP02>90% ON RA. VSS. PT C/O OF PAIN IN HER BOTTOM FROM BED, RELIEVED W/ REPOSITIONING. CURRENTLY FLOATED ON PILLOWS. PT HAS PURWIK TO LIS AND GRAVITY TO DRAIN, THOUGH DID LEAK SOME. C/D ATTENDS IN PLACE. NO BM THIS SHIFT. FLUIDS INFUSED PER EMAR. PT STATED SHE "SLEPT IN NAPS" DURING THE NOC. CALL LIGHT IN REACH.
--- NOTE | 2021-10-14 07:45 | NUR ---
INITIAL ASSESSMENT: Patient is alert and oriented, she c/o 9/10 pain in her right shoulder. She describes it as, "sore and overworked." Medicated with 5 mg Oxycodone given PO. She is able to move her right arm above her head very slowly and weak. right foot she is able to push on my hands but cannot pull the foot up toward herself. ELA. She deneis N/T. HRR, rate in the 80s. LS CTA, Biox 95% on RA. BT+. VSS. AM meds given. Dr Bunch ordered some potassium replacement. IVF DC'd. This RN talked with patient about keeping up oral intake for renal function. Patient denies other needs at this time. Call light in reach.
--- NOTE | 2021-10-14 12:09 | NUR ---
Update: Patient has been resting comfortably. Neuro status unchanged. Plan for cervical and lumbar CT with out contrast around 1300. PT given ativan for muscle spasms in the right shoulder. Patient denies other needs at this time. Call light in reach.
--- NOTE | 2021-10-14 16:15 | NUR ---
Update: Neuro checks unchanged. VSS. Pt was able to stand and pivot with therapy to the recliner. She denies needs at this time. Call light in reach.
--- NOTE | 2021-10-14 17:09 | NUR ---
Summary: Patient is alert and oriented, here for right sided weakness and JACKY. She continues to have right sided weakness and inability to felx right foot, she is able to move her leg-but not her foot. She has sensation to deep touch to that right foot but not light sensation. She stated, "It feels like my foot is asleep." ELA. [employer] equal and strong. She C/O pain and muscle spasms in her right shoulder, she was medicated with lorazepam and oxycodone with good relief. VSS. LS Clear, she has maintained saturations above 95% T/O the shift. BT+, no BM this shift. Purewick was in place for the majority of the shift, it was removed when the patient transferred to the recliner. She has attends in place. No other acute changes this shift. Patient is currently resting comfortably in the recliner. I will report to oncoming RN.
[2021-10-14] MEDS ORDERED: DEXTROAMPHETAMI10 M5 PO (23:11)
[2021-10-14] MEDS ORDERED: FUROSEMIDE20 MG PO (23:12)
--- NOTE | 2021-10-14 23:32 | NUR ---
PT TRANSFERRED FROM [facility], ARRIVED VIA BED IN STABLE CONDITION. AGREE WITH THE BOWLING BALL MARKER'S ASSESSMENT, EXCEPT AT THIS TIME THE PT REPORTS R SHOULDER PAIN OF 6-7 OUT OF 10. SHE DENIES MUSCHLE SPASMS OR A MIGRAINE AT THIS TIME. NEURO CHECKS, R FOOT DID NOT MOVE, L FOOT MOVED BUT IS SLIGHTLY WEAK. PT REPORTS N/T IN R FOOT. TRACE EDEMA IN LE'S/ANKLES/FEET. PT DENIES ANXIETY AT THIS TIME. PT DOES NOT WANT THE TYLENOL AT THIS TIME, SHE STATES SHE FEELS LIKE SHE CAN WAIT UNTIL IT IS TIME FOR HER NEXT PAIN MEDICATION. NO OTHER APPARENT SIGNS OF DISTRESS. CALL LIGHT IS IN REACH.
--- NOTE | 2021-10-15 05:41 | NUR ---
0210 PT REQUESTED AND RECIVED PAIN MEDS AND ATIVAN, WILL EVAL FOR EFFECT. NO OTHER APPARENT SIGNS OF DISTRESS. CALL LIGHT IS IN REACH.
--- NOTE | 2021-10-15 05:42 | NUR ---
PT IS AAO X 4, ON RA. REPORTS R SHOULDER PAIN AND MUSCLE SPASMS, GOT OXYCODONE AND ATIVAN X 1.
--- NOTE | 2021-10-15 05:42 | NUR ---
0400 PT LYING IN BED, EYES CLOSED, APPEARS TO BE RESTING, BREATHING IS EVEN, UNLABORED. NO APPARENT SIGNS OF DISTRESS. CALL LIGHT IS IN REACH.
--- NOTE | 2021-10-15 06:03 | NUR ---
PT UP TO BATHROOM WITH 2 ASSIST, NO APPARENT SIGNS OF DISTRESS. CALL LIGHT IS IN REACH. NO OTHER APPARENT SIGNS OF DISTRESS. NO OTHER CHANGES THIS SHIFT.
[2021-10-15 06:15] LABS: Albumin, Blood 2.9 g/dL (3.4-5.0); Anion Gap 5 mmol/L (6-16); Blood Urea Nitrogen 10 mg/dL (8-24); Bun/Creatinine Ratio 12.7 (12.0-20.0); CO2, Blood 27 mmol/L (21-32); Calcium, Blood 8.7 mg/dL (8.5-10.1); Chloride, Blood 109 mmol/L (98-108); Creatinine, Blood 0.79 mg/dL (0.40-1.00); Glomerular Filtration Rate 88 (60-); Glucose, Blood 86 mg/dL (70-99); Phosphorus, Blood 2.9 mg/dL (2.5-4.9); Potassium, Blood 3.6 mmol/L (3.5-5.5); Sodium, Blood 141 mmol/L (136-145)
--- NOTE | 2021-10-15 15:45 | NUR ---
PT IS A/OX4, PLEASANT AND COOPERATIVE. THE PT IS UP WITH 1-2 PERSON ASSIST TO THE BSC. PT DENIED ANY PAIN. THE PT APPEARS TO BE BREATHING EASILY ON RA. PTS FAMILY IN TO VISIT. NO OTHER CHANGES NOTICED THIS SHIFT. CALL LIGHT IN REACH WILL CONTINUE TO MONITOR AND ASSESS FOR CHANGES. PT CARE TURNED OVER TO PHANI GARCIA
--- NOTE | 2021-10-16 05:52 | NUR ---
SHIFT SUMMARY PATIENT ALERT AND ORIENTED. MEDICATED PER EMAR FOR PAIN AND ANXIETY. NO ACUTE ISSUES NOTED OVERNIGHT. CALL LIGHT WITHIN REACH. REPORT GIVEN TO ONCOMING RN.
--- NOTE | 2021-10-16 17:46 | NUR ---
PT IS A/OX4, PLEASANT AND COOPERATIVE. THE PT IS UP WITH ASSIST TO THE BSC. THE PT CONTINUES TO HAVE RIGHT LE WEAKNESS AND SWELLING IN THE FOOT. PT WAS MEDICATED FOR PAIN X1 TODAY. THE PT APPEARS TO BE BREATHING EASILY ON RA AT THIS TIME. THE PTS PAIN SPECIALIST HUNTER PERLA CALLED TODAY EXPRESSING CONCERN OVER THE PT NOT BEING ALLOOWED TO HAVE A MRI DUE TO AN IMPLANTED PAIN PUMP AND THAT THE PUMP WAS OK TO BE IN THE MRI. MINDA'S PHONE NUMBER WAS GIVEN TO DR. MENDEZ SHE REQUESTED. PTS AT THE BEDSIDE AT THIS TIME. CALL LIGHT IN REACH. WILL CONTINUE TO MONITOR AND ASSESS FOR CHANGES
--- NOTE | 2021-10-17 06:35 | NUR ---
SHIFT SUMMARY PATIENT ALERT AND ORIENTED. MEDICATED PER EMAR FOR PAIN. NO ACUTE ISSUES NOTED OVERNIGHT. CALL LIGHT WITHIN REACH. REPORT GIVEN TO ONCOMING RN.
--- NOTE | 2021-10-17 18:33 | NUR ---
NO ACUTE CHANGES DURING SHIFT. PATIENT ALERT AND ORIENTED, FOLLOWS COMMANDS. PT DOWN TO MRI TODAY, PENDING RESULTS. PRN MEDICATION FOR ANXIETY ADMINISTERED. R LEG STILL NOT BACK TO BASELINE, LEFT SIDE FUNCTION RETURNING.
--- NOTE | 2021-10-18 05:17 | NUR ---
A&OX4. V/S WNL. NO IV ACCESS. SBA ON AMBULATION. R) SIDE WEAKNESS. VOIDS W/O DIFFICULTY. NO BM THIS SHIFT. REGULAR DIET. PRN POLLO GIVEN FOR PAIN & ATIVAN FOR ANXIETY PER EMAR. EDEMA +2 NOTED TO LE'S; LEGS ELEVATED. WILL CONTINUE TO MONITOR.
[2021-10-18 05:50] LABS: Bun/Creatinine Ratio 13.9 (12.0-20.0); Calcium, Blood 8.8 mg/dL (8.5-10.1); Creatinine, Blood 0.72 mg/dL (0.40-1.00); Potassium, Blood 3.4 mmol/L (3.5-5.5)
--- NOTE | 2021-10-18 06:37 | NUR ---
SCHOOL ATHLETIC DIRECTOR NOTIFIED DR. ROMAN ABOUT PT BEING ADMITTED 5 DAYS AGO AND NOT BEING ON ANY HOME MEDS. PROVIDER TOOK A LOOK AT PT'S HOME MEDS AND SAID. " RELAY THAT INFO TO THE DAYSHIFT RN SO DR. MENDEZ CAN START HER ON HER HOME MEDS. " THIS RN WILL RELAY THAT INFO.
[2021-10-18 12:13] LABS: C-REACTIVE PROTEIN, EXT RANGE <0.290 mg/dL (0.000-0.300)
[2021-10-18 12:38] LABS: Thyroid Stimulating Hormone 0.814 uIU/mL (0.360-4.800)
--- NOTE | 2021-10-18 17:28 | NUR ---
SHIFT SUMMARY: NO ACUTE EVENTS. NO CHANGES IN NEURO EXAM, R FOOT STILL WITH FOOT DROP; WORKED WITH PHYSICAL THERAPY, RECOMMENDING OUTPUT PT. PLACED ON TELE TO MONITOR FOR PAROXYSMAL A FIB. ARVIN POWERGLIDE PLACED IN ORDER FOR CONTRAST TO BE GIVEN FOR HEAD/NECK CTA. POTASSIUM REPLACED. DENIED NAUSEA. MEDICATED FOR PAIN PER EMAR. SPOUSE VISITED THIS MORNING, SPOKE WITH DR. WADDELL AT BEDSIDE.
--- NOTE | 2021-10-19 05:16 | NUR ---
SUPERINTENDENT NONSELLING SUMMARY VSS. ALERT AND ORIENTED X 4. NEURO CHECKS DONE Q 4 HRS. ELA, MANUFACTURING PLANT TECHNICIAN EQUAL AND STRONG. FOOT DROP OF RIGHT SIDE. LEFT FOOT DORSI AND PLANTAR FLEXION STRONG. FEELING IN 3 EXTREMITIES BUT LESS IN RLE. ABLE TO GET UP TO THE BATHROOM WITH WALKER AND SOME ASSIST. NOTE DETERMINATION TO DO MUCH FOR SELF POSSIBLE, REFUSING ASSISTANCE UNLES ABSOLUTELY NEEDING IT. AFFECT CHEERFUL. HAS BEEN RESTING QUIETLY WITH A FEW INTERRUPTIONS THIS SHIFT. CALL LIGHT IN REACH
[2021-10-19 12:55] LABS: Hematocrit 32.6 % (33.0-51.0); Hemoglobin 10.8 g/dL (11.5-16.0); Mean Corpuscular HGB 29.2 pg (26.0-34.0); Mean Corpuscular HGB Conc 33.1 g/dL (31.5-36.5); Mean Corpuscular Volume 88 fL (80-100); Mean Platelet Volume 9.1 fL (9.1-12.4); Platelet Count 282 K/mm3 (150-400); RDW Coefficient Variation 13.2 % (11.7-14.2); RDW Standard Deviation 42.5 fL (35.1-46.3); White Blood Cell Count 6.26 K/mm3 (4.00-11.30)
--- NOTE | 2021-10-19 19:05 | NUR ---
SHIFT SUMMARY: NO ACUTE EVENTS. NO EVENTS ON TELEMETRY, SR 70-80'S. R FOOT DROP HAS IMPROVED SLIGHTLY AND PT IS AWARE OF FINE TOUCH SENSATION, IMPROVED FROM YESTERDAY. C/O PAIN THIS MORNING; MEDICATED PER EMAR. HAD U/S BLE; EDEMA HAS NOT IMPROVED MUCH TODAY. TOLERATING PO INTAKE.
--- NOTE | 2021-10-20 04:02 | NUR ---
SHIFT SUMMARY PT COOPERATIVE AND PLEASANT. PT HAS NOT SLEPT MUCH THROUGHOUT THE NIGHT. PT HAS ASKED FOR POPSICLES A FEW TIMES. PT HAS NO COMPLAINTS AT THIS TIME. PT HAS CALL LIGHT WITHIN HER REACH. PT UP TO RESTROOM WITH STANDBY ASSIST AND FWW.
[2021-10-20 05:12] LABS: Hemoglobin 10.5 g/dL (11.5-16.0); Mean Corpuscular HGB 29.1 pg (26.0-34.0); Mean Corpuscular HGB Conc 31.8 g/dL (31.5-36.5); Mean Corpuscular Volume 91 fL (80-100); Mean Platelet Volume 9.1 fL (9.1-12.4); Platelet Count 267 K/mm3 (150-400); RDW Coefficient Variation 13.2 % (11.7-14.2); RDW Standard Deviation 44.2 fL (35.1-46.3); Red Blood Cell Count 3.61 M/mm3 (3.80-5.20); White Blood Cell Count 5.81 K/mm3 (4.00-11.30)
[2021-10-20 05:28] LABS: Bilirubin, Total 0.4 mg/dL (0.1-1.0); Bun/Creatinine Ratio 12.4 (12.0-20.0); Calcium, Blood 8.8 mg/dL (8.5-10.1); Creatinine, Blood 0.73 mg/dL (0.40-1.00); Percent Saturation 16.6 % (15.0-50.0); Potassium, Blood 3.6 mmol/L (3.5-5.5)
[2021-10-20] MEDS ORDERED: CLOP75 PO (11:11)
[2021-10-20] MEDS ORDERED: ASPI81CH PO (11:12)
--- NOTE | 2021-10-20 16:16 | NUR ---
DME DELIVERED PT'S W/C FOR HOME USE WAS DELIVERED HERE TO HER ROOM TO GO HOME WITH HWER WHEN SHE LEAVES. AWAITING HER SPOUSE TO DRIVE HER HOME.
--- NOTE | 2021-10-20 16:25 | NUR ---
DC HOME PT'S SPOUSE ARRIVED. PT DC'D HOME VIA NEWLY DELIVERED W/C. ALL PERSONAL BELONGINGS SENT HOME WITH PT. DC INSTRUCTIONS GIVEN TO PT. HARD SCRIPT FOR AFO SENT WITH PT WITH INSTRUCTIONS TO OPTIONS WHERE & HOW TO OBTAIN AFO. NEW DC MED SCRIPTS FAXED TO [facility] IN [place]. PT VERBALIZED UNDERSTANDING OF ALL DC INSTRUCTIONS. POWERGLIDE IV DC'D WITH CATH TIP INTACT. SITE WITH NO REDNESS OR SWELLING.
== END 2021-10-20 16:22 | disposition home or self-care (01) | DRG 65 ==
LOC: ER 12:13 → PCU 16:26 → MEDS 10-14 23:12 → ENPENDDIS 10-20 10:47 → MEDS 10-20 16:22
PROVIDERS: Emergency Medicine; Internal Medicine; ADMIT Internal Medicine
DX: I63.9 Cerebral infarction, unspecified (principal); G81.91 Hemiplegia, unspecified affecting right dominant side; N17.9 Acute kidney failure, unspecified; F32.A Depression, unspecified; G43.909 Migraine, unspecified, not intractable, without status migrainosus; G89.29 Other chronic pain; E87.6 Hypokalemia; M62.838 Other muscle spasm; I12.9 Hypertensive chronic kidney disease with stage 1 through stage 4 chronic kidney disease, or unspecified chronic kidney disease; N18.30 Chronic kidney disease, stage 3 unspecified; F41.1 Generalized anxiety disorder; R55 Syncope and collapse; M21.371 Foot drop, right foot; Z90.710 Acquired absence of both cervix and uterus; Z90.721 Acquired absence of ovaries, unilateral; Z90.89 Acquired absence of other organs; Z98.890 Other specified postprocedural states; Z88.8 Allergy status to other drugs, medicaments and biological substances; Z79.899 Other long term (current) drug therapy
CPT/HCPCS: 36415; 51701; 70450; 70496; 70498; 70551; 72125; 72131; 72141; 72148; 80048; 80053; 80069; 81001; 82550; 82553; 82607; 82728; 82746; 83540; 83550; 83735; 83880; 84443; 85025; 85027; 85651; 86140; 87086; 93005; 93010; 93246; 93970; 97110; 97112; 97116; 97162; 97166; 97530; 97535; 99285-25; A9270; J1650; J3010; J3480; J7030; J7120; Q9967

== ENCOUNTER 2022-12-11 20:25 | Observation (INO) | payer MEDICARE ==
[~2022-12-11] VITALS: Ht 162.6 cm; Wt 113.4 kg
[~2022-12-11 20:25] MED LIST changes: +ASPI81CH PO; +ATOR10 PO; +CLOP75 PO; +DEXTROAMPHETAMI10 M5 PO; +ESCI10 PO; +FUROSEMIDE20 MG PO; +HYDPAM50 PO; +METO10 PO; +ZOLP5 PO
[2022-12-11 21:22] LABS: BASOPHILS ABSOLUTE AUTO 0.02 K/mm3 (0.00-0.23); BASOPHILS PERCENT AUTO 0 % (0-2); EOSINOPHILS PERCENT AUTO 0 % (0-6); Hematocrit 43.3 % (33.0-51.0); Hemoglobin 15.1 g/dL (11.5-16.0); IMMATURE GRAN ABSOLUTE AUTO 0.02 K/mm3 (0.00-0.10); IMMATURE GRAN PERCENT AUTO 0 % (0-1); LYMPHOCYTES ABSOLUTE AUTO 1.46 K/mm3 (0.84-5.20); LYMPHOCYTES PERCENT AUTO 16 % (21-46); MONOCYTES ABSOLUTE AUTO 0.37 K/mm3 (0.16-1.47); MONOCYTES PERCENT AUTO 4 % (4-13); Mean Corpuscular HGB 28.9 pg (26.0-34.0); Mean Corpuscular HGB Conc 34.9 g/dL (31.5-36.5); Mean Corpuscular Volume 83 fL (80-100); Mean Platelet Volume 9.7 fL (9.1-12.4); NEUTROPHILS ABSOLUTE AUTO 7.29 K/mm3 (1.96-9.15); NEUTROPHILS PERCENT AUTO 80 % (41-73); Platelet Count 319 K/mm3 (150-400); RDW Coefficient Variation 12.8 % (11.7-14.2); RDW Standard Deviation 38.4 fL (35.1-46.3); Red Blood Cell Count 5.23 M/mm3 (3.80-5.20); White Blood Cell Count 9.16 K/mm3 (4.00-11.30)
[2022-12-11 21:31] LABS: Albumin, Blood 4.4 g/dL (3.4-5.0); Bilirubin, Total 1.6 mg/dL (0.1-1.0); Bun/Creatinine Ratio 15.4 (12.0-20.0); Calcium, Blood 9.9 mg/dL (8.5-10.1); Creatinine, Blood 0.84 mg/dL (0.40-1.00); Globulin, Blood 4.3 g/dL (2.2-4.0); Potassium, Blood 2.7 mmol/L (3.5-5.5); Total Protein, Blood 8.7 g/dL (6.4-8.2)
[2022-12-12 02:02] VITALS: BP 152/78
--- NOTE | 2022-12-12 03:15 | NUR ---
REPORT RECEIVED FROM JAE AND ASSUMED CARE OF PT. THIS RN AGREES TO ADMISSION ASSESSMENT FINDINGS. PT C/O ANXIETY AND JAE PROVIDED ATIVAN AND TRAZADONE PRN, AWAITING EFFECT. SHE IS RESTING IN BED AT THIS TIME AND AWARE TO CALL FOR ASSIST PRN. PT DENIES CP AND ALL OTHER S/S CARDIAC DISTRESS.
[2022-12-12 05:24] LABS: BASOPHILS ABSOLUTE AUTO 0.03 K/mm3 (0.00-0.23); BASOPHILS PERCENT AUTO 0 % (0-2); EOSINOPHILS PERCENT AUTO 0 % (0-6); Hematocrit 40.5 % (33.0-51.0); IMMATURE GRAN ABSOLUTE AUTO 0.09 K/mm3 (0.00-0.10); IMMATURE GRAN PERCENT AUTO 1 % (0-1); LYMPHOCYTES ABSOLUTE AUTO 1.76 K/mm3 (0.84-5.20); LYMPHOCYTES PERCENT AUTO 15 % (21-46); MONOCYTES ABSOLUTE AUTO 0.61 K/mm3 (0.16-1.47); MONOCYTES PERCENT AUTO 5 % (4-13); Mean Corpuscular HGB Conc 34.6 g/dL (31.5-36.5); Mean Corpuscular Volume 84 fL (80-100); Mean Platelet Volume 9.7 fL (9.1-12.4); NEUTROPHILS ABSOLUTE AUTO 9.45 K/mm3 (1.96-9.15); NEUTROPHILS PERCENT AUTO 79 % (41-73); Platelet Count 269 K/mm3 (150-400); RDW Standard Deviation 39.8 fL (35.1-46.3); Red Blood Cell Count 4.83 M/mm3 (3.80-5.20); White Blood Cell Count 11.94 K/mm3 (4.00-11.30)
--- NOTE | 2022-12-12 05:32 | NUR ---
PT ANXIETY SEEMED MOSTLY RELIEVED AND SHE WAS RESTING IN BED W/O S/S DISTRESS BUT AWOKE NAUSEOUS W/EMESIS AND WAS INCONTINENT OF URINE. DURING LINEN AND ATTENDS CHANGE, SHE BEGAN TO C/O "CRUSHING" CP AND APPEARED RESTLESS, FLUSHED AND MILDLY DIAPHORETIC. VSS AT THE TIME AND TROPS ARE TRENDING DOWN, NOW 58. EKG PERFORMED AND SHOWED NSR W/SINUS ARRHYTHMIA AT 65 BPM. PT AUSCULATES BETWEEN APPEARING COMFORTABLE, DROWSY AND SNORING THEN BECOMES BRIEFLY FIGITY W/POSS DISTRESS. MADE AWARE OF FINDINGS. SHE SPECULATES ANXIETY POSSIBLE CAUSE FOR CP BUT XANAX NOT GIVEN AT THIS TIME D/T PT CURRENTLY SLEEPING. RX'D ZORFRAN 4MG IV PRN Q6H AND INSTRUCTED TO CONTINUE MONITORING FOR CHANGES OR WORSENING.
[2022-12-12 06:27] LABS: Albumin, Blood 3.8 g/dL (3.4-5.0); Bilirubin, Total 1.3 mg/dL (0.1-1.0); Bun/Creatinine Ratio 12.5 (12.0-20.0); Calcium, Blood 8.7 mg/dL (8.5-10.1); Creatinine, Blood 0.8 mg/dL (0.40-1.00); Globulin, Blood 3.7 g/dL (2.2-4.0); Total Protein, Blood 7.5 g/dL (6.4-8.2)
--- NOTE | 2022-12-12 07:30 | NUR ---
ASSUMED CARE: PT RESTING QUIETLY. SINUS DIONTE IN 50S ON TELE. NO C/O CP OR FURTHER NEEDS AT THIS TIME.
[2022-12-12] MEDS ORDERED: PANT40 PO (13:52)
[2022-12-12 15:40] VITALS: BP 112/58
== END 2022-12-12 17:40 | disposition home or self-care (01) ==
LOC: ER 20:25 → MEDS 22:26 → EDBEDREQ 12-12 01:05 → MEDS 12-12 01:53 → ENPENDDIS 12-12 13:07 → MEDS 12-12 17:40
PROVIDERS: Emergency Medicine; Family Medicine; ADMIT Internal Medicine
DX: R07.89 Other chest pain (principal); E87.6 Hypokalemia; R11.2 Nausea with vomiting, unspecified; I48.91 Unspecified atrial fibrillation; I12.9 Hypertensive chronic kidney disease with stage 1 through stage 4 chronic kidney disease, or unspecified chronic kidney disease; N18.9 Chronic kidney disease, unspecified; F41.1 Generalized anxiety disorder; Z79.82 Long term (current) use of aspirin; Z79.899 Other long term (current) drug therapy
CPT/HCPCS: 36415; 71045; 80053; 83690; 84484; 85025; 93005; 93010; 96361; 96365; 96366; 96372; 96375; 96376; 99285-25; A9270; C9113; G0378; J1650; J2060; J2405; J3480; J7030; J7050